=== PATIENT | male | born 1970 | race Caucasian/White ===

== ENCOUNTER 2017-06-10 08:22 | Emergency (ER) | payer MEDICAID ==
[~2017-06-10] VITALS: Ht 185.4 cm; Wt 134.9 kg
[2017-06-10] MEDS ORDERED: SODIUM CHLORIDE 0.9% 1,000ML IVBOLUS ONE (09:00)
[2017-06-10] MEDS ORDERED: FAMOTIDINE 20 MG/2 ML IVP ONE (09:00)
[2017-06-10] MEDS ORDERED: SODIUM CHLORIDE FLUSH 10ML SYR IVF ONE (09:00)
[2017-06-10] MEDS ORDERED: ONDANSETRON 2MG/ML, 2ML IVPush ONE (09:00)
[2017-06-10] MEDS ORDERED: HYDROmorphone 1 MG/ML, 1ML IVPush PRN (09:00)
[2017-06-10] MEDS ORDERED: ONDANSETRON 2MG/ML, 2ML ONE (09:11)
[2017-06-10] MEDS ORDERED: HYDROmorphone 1 MG/ML, 1ML ONE (09:11)
[2017-06-10] MEDS ORDERED: FAMOTIDINE 20 MG/2 ML ONE (09:11)
[2017-06-10 09:17] LABS: HEMATOCRIT 46.6 % (39.2-51.8); HEMOGLOBIN 15.8 g/dL (13.7-18.0); WHITE BLOOD COUNT 9.3 x10^3/uL (3.4-10)
[2017-06-10 09:30] LABS: BLOOD UREA NITROGEN 14 mg/dL (7-18)
[2017-06-10 09:33] LABS: ASPARTATE AMINO TRANSFERASE 28 U/L (15-37)
[2017-06-10 10:57] VITALS: BP 138/99
== END 2017-06-10 11:02 | disposition home or self-care (01) ==
LOC: ED 09:46
DX: R10.13 Epigastric pain (principal); R11.2 Nausea with vomiting, unspecified; I10 Essential (primary) hypertension
CPT/HCPCS: 36415; 76700; 80053; 83690; 85025; 96374; 96375; 99285; J1170; J2405; J7030; S0028